=== PATIENT | female | born 1985 | race Two or more races ===

== ENCOUNTER 2017-10-22 20:24 | Emergency (ER) | payer MEDICAID ==
[~2017-10-22] VITALS: Ht 149.9 cm; Wt 58.1 kg
[2017-10-22 20:49] VITALS: BP 133/82
== END 2017-10-22 21:56 | disposition home or self-care (01) ==
LOC: ER 20:32
DX: R05 Cough (principal); R09.81 Nasal congestion
CPT/HCPCS: 71045; 99283; A4606; Z7610

== ENCOUNTER 2017-10-26 21:00 | Emergency (ER) | payer MEDICAID ==
[~2017-10-26] VITALS: Ht 149.9 cm; Wt 58.1 kg
[2017-10-26 21:07] VITALS: BP 116/73
--- NOTE | 2017-10-26 23:02 | NUR ---
PT STATED THAT SHE WAS DX WITH INFLUENZA ON 10/23/17 AND FEELS THE MEDICATION PRESCRIBED IS NOT WORKING. PT IS AWAITING EVAL BY .
--- NOTE | 2017-10-26 23:02 | NUR ---
ASSUMED CARE OF PT.
[2017-10-26] MEDS ORDERED: predniSONE 20 MG TABLET ONE (23:26)
[2017-10-26] MEDS ORDERED: ALBUTEROL FS 2.5 MG/3 ML VIAL.NEB NEB ONE (23:30)
[2017-10-26] MEDS ORDERED: IPRATROPIUM NEB FS 0.5 MG/2.5 ML AMPUL.NEB NEB ONE (23:30)
[2017-10-26] MEDS ORDERED: predniSONE 20 MG TABLET PO ONE (23:30)
--- NOTE | 2017-10-26 23:37 | NUR ---
CALLED RT RE: BREATHING TX.
[2017-10-27] MEDS ORDERED: ALBUTEROL FS 2.5 MG/0.5 ML VIAL.NEB ONE (00:04)
[2017-10-27] MEDS ORDERED: IPRATROPIUM NEB FS 0.5 MG/2.5 ML AMPUL.NEB ONE (00:04)
--- NOTE | 2017-10-27 00:25 | NUR ---
PT APPEARS TO BE MOVING AIR. PT STATED THAT SHE FEELS BETTER. MAGDIEL, ITTING IS TRANSLATING FOR DAVEY SETH WHILE SHE IS SPEAKING TO THE PT RE: PLAN.
== END 2017-10-27 01:03 | disposition home or self-care (01) ==
LOC: ER 21:00
DX: J20.9 Acute bronchitis, unspecified (principal)
CPT/HCPCS: 94640; 99283; A4606; J7512; Z7610

== ENCOUNTER 2019-01-16 21:55 | Emergency (ER) | payer MEDICAID ==
[~2019-01-16] VITALS: Ht 162.6 cm; Wt 62.1 kg
[2019-01-16 22:01] VITALS: BP 117/67
--- NOTE | 2019-01-16 22:08 | NUR ---
BIB SELF. AAOX4. NAD. BREATHING EVEN AND UNLABORED. AMBULATORY. IRANIAN SPEAKING, KARO, EMT AT BEDSIDE TO TRANSLATE. CAME IN W/ C/O R 4TH DIGIT SWELLING, BENT ON DISTAL INTERPHALANGE 2ND TO CLEANING AND HIT HER HAND. MD AT BEDSIDE FOR EVAL.
--- NOTE | 2019-01-16 22:18 | NUR ---
MAXAY AT BEDSIDE. WAIVER OBTAINED FROM PT.
[2019-01-16] MEDS ORDERED: IBUPROFEN 600 MG TABLET PO ONE ×2 (22:26→22:30)
--- NOTE | 2019-01-16 22:27 | NUR ---
EMT AT BEDSIDE AND APPLIED FINGER SPLINT.
--- NOTE | 2019-01-16 22:32 | NUR ---
Patient discharged to home in stable condition. Written and verbal after care instructions given. Patient verbalizes understanding of instruction.
== END 2019-01-16 22:35 | disposition home or self-care (01) ==
LOC: ER 21:57
DX: M20.011 Mallet finger of right finger(s) (principal); W22.8XXA Striking against or struck by other objects, initial encounter; Y93.89 Activity, other specified; Y92.89 Other specified places as the place of occurrence of the external cause; Y99.8 Other external cause status
CPT/HCPCS: 73140-TC

== ENCOUNTER 2019-03-31 20:02 | Emergency (ER) | payer MEDICAID ==
[~2019-03-31] VITALS: Ht 152.4 cm; Wt 62.6 kg
[2019-03-31 20:07] VITALS: BP 116/68
[2019-03-31] MEDS ORDERED: IBUPROFEN 600 MG TABLET PO ONE ×2 (21:00→21:22)
--- NOTE | 2019-03-31 22:21 | NUR ---
called chana for read
== END 2019-03-31 22:46 | disposition home or self-care (01) ==
LOC: ER 20:06
DX: S60.221A Contusion of right hand, initial encounter (principal); S60.211A Contusion of right wrist, initial encounter; W18.30XA Fall on same level, unspecified, initial encounter; Y93.89 Activity, other specified; Y92.89 Other specified places as the place of occurrence of the external cause; Y99.8 Other external cause status
CPT/HCPCS: 73110; 73130-TC

== ENCOUNTER 2023-01-15 10:26 | Emergency (ER) | payer MEDICAID ==
[~2023-01-15] VITALS: Ht 157.5 cm; Wt 61.2 kg
--- NOTE | 2023-01-15 11:06 | NUR ---
UPPER ABDOMINAL PAIN FOR 7 DAYS.
--- NOTE | 2023-01-15 11:40 | NUR ---
DISPOSAL OPERATOR. AT BEDSIDE
[2023-01-15 11:54] LABS: BASOPHILS # (AUTO) 0.1 K/uL (0.0-0.2); BASOPHILS % (AUTO) 1.2 % (0.0-2.0); EOSINOPHILS % (AUTO) 5.4 % (0.0-6.0); HEMATOCRIT 31 % (33-45); HEMOGLOBIN 9.5 g/dL (11.5-14.8); LYMPHOCYTES # (AUTO) 1.8 K/uL (0.8-4.8); LYMPHOCYTES % (AUTO) 20.6 % (20.0-44.0); MEAN CORPUSCULAR HGB CONC 31 g/dl (31.0-36.0); MEAN CORPUSCULAR VOLUME 64 fL (82-100); MONOCYTES # (AUTO) 0.6 K/uL (0.1-1.30); MONOCYTES % (AUTO) 6.9 % (2.0-12.0); NEUTROPHILS # (AUTO) 5.9 K/uL (1.8-8.9); NEUTROPHILS % (AUTO) 65.9 % (43.0-81.0); PLATELET COUNT (AUTO) 412 K/uL (150-450); RED BLOOD CELL COUNT(AUTO) 4.83 MIL/uL (4.0-5.2); WHITE BLOOD COUNT (AUTO) 8.9 K/uL (4.3-11.0)
[2023-01-15 12:02] LABS: BILIRUBIN,URINE NEGATIVE (NEGATIVE); COLOR,URINE YELLOW (YELLOW); LEUKOCYTE ESTERASE ,URINE TRACE (NEGATIVE); NITRITE, URINE NEGATIVE (NEGATIVE); PH,URINE 6.5 (5.0-8.0); PROTEIN,URINE NEGATIVE (NEGATIVE); UGLUCOSE 2+ mg/dL (NEGATIVE); UROBILINOGEN,URINE 0.2 EU/dL (0.2)
[2023-01-15 12:03] LABS: BACTERIA,URINE Rare /HPF (None Seen); RBC,URINE 0-2 /HPF (0-2); SQUAMOUS EPITHELIAL CELL,UR Few /HPF (None Seen)
[2023-01-15] MEDS ORDERED: MAG HYDROX/AL HYDROX/SIMETH 30 ML UDC ONE (12:19)
[2023-01-15] MEDS ORDERED: FAMOTIDINE (20 MG) 20 MG TABLET ONE (12:19)
[2023-01-15] MEDS ORDERED: IBUPROFEN 600 MG TABLET ONE (12:20)
[2023-01-15] MEDS ORDERED: IBUPROFEN 600 MG TABLET PO ONE (12:30)
[2023-01-15] MEDS ORDERED: MAG HYDROX/AL HYDROX/SIMETH 30 ML UDC PO ONE (12:30)
[2023-01-15] MEDS ORDERED: FAMOTIDINE (20 MG) 20 MG TABLET PO ONE (12:30)
[2023-01-15 12:37] LABS: ALBUMIN 3.6 g/dL (3.4-5.0); BILIRUBIN,TOTAL 0.3 mg/dL (0.2-1.0); CREATININE 0.6 mg/dL (0.6-1.3); POTASSIUM 3.9 mmol/L (3.5-5.1); TOTAL PROTEIN, SERUM 7.4 g/dL (6.4-8.2)
[2023-01-15] MEDS ORDERED: DOCU-141 PO (14:00)
[2023-01-15] MEDS ORDERED: FAMO20TA8 PO (14:00)
[2023-01-15] MEDS ORDERED: IBUP-1955 PO (14:00)
--- NOTE | 2023-01-15 14:08 | NUR ---
Patient discharged to home in stable condition. Written and verbal after care instructions given. Patient verbalizes understanding of instruction.
[2023-01-15 14:10] VITALS: BP 115/75
== END 2023-01-15 14:08 | disposition home or self-care (01) ==
LOC: ER 10:50
DX: K29.70 Gastritis, unspecified, without bleeding (principal); K59.00 Constipation, unspecified; D50.9 Iron deficiency anemia, unspecified; R10.32 Left lower quadrant pain; Z79.899 Other long term (current) drug therapy
CPT/HCPCS: 36415; 80053-TC; 81001; 83690-TC; 84703-TC; 85025-TC

== ENCOUNTER 2024-02-21 14:25 | Emergency (ER) | payer MEDICAID, OTHER ==
[~2024-02-21] VITALS: Ht 152.4 cm; Wt 60.8 kg
[~2024-02-21 14:25] MED LIST: DOCU-141 PO; FAMO20TA8 PO; IBUP-1955 PO
[2024-02-21] MEDS ORDERED: KETOROLAC TROMETHAMINE 15 MG/ML VIAL ONE (15:19)
[2024-02-21] MEDS ORDERED: PANTOPRAZOLE 40 MG VIAL ONE (15:20)
[2024-02-21] MEDS ORDERED: FAMOTIDINE/PF INJ 20 MG/2 ML VIAL IV ONE (15:20)
[2024-02-21] MEDS: KETOROLAC TROMETHAMINE 15 MG/ML VIAL IV ONE (15:35)
[2024-02-21] MEDS: PANTOPRAZOLE 40 MG VIAL IV ONE (15:35)
[2024-02-21] MEDS: FAMOTIDINE/PF INJ 20 MG/2 ML VIAL IV ONE (15:35)
[2024-02-21] MEDS: IV NS 0.9% 1,000 ML BAG IV ONE (15:35)
[2024-02-21 15:55] LABS: BASOPHILS # (AUTO) 0.1 K/uL (0.0-0.2); BASOPHILS % (AUTO) 1.1 % (0.0-2.0); EOSINOPHILS # (AUTO) 0.3 K/uL (0.0-0.7); EOSINOPHILS % (AUTO) 3.1 % (0.0-6.0); HEMATOCRIT 30 % (33-45); HEMOGLOBIN 9.3 g/dL (11.5-14.8); LYMPHOCYTES % (AUTO) 22.1 % (20.0-44.0); MEAN CORPUSCULAR HEMOGLOBIN 20 PG (26.0-33.0); MEAN CORPUSCULAR HGB CONC 31 g/dl (31.0-36.0); MEAN CORPUSCULAR VOLUME 64 fL (82-100); MONOCYTES # (AUTO) 0.5 K/uL (0.1-1.30); MONOCYTES % (AUTO) 5.7 % (2.0-12.0); PLATELET COUNT (AUTO) 433 K/uL (150-450); RED BLOOD CELL COUNT(AUTO) 4.68 MIL/uL (4.0-5.2); RED CELL DISTRIBUTION WIDTH 18.8 % (11.5-15.0); WHITE BLOOD COUNT (AUTO) 8.9 K/uL (4.3-11.0)
[2024-02-21 15:56] LABS: CALCIUM, SERUM 8.7 mg/dL (8.5-10.1); CREATININE 0.7 mg/dL (0.6-1.3); POTASSIUM 3.6 mmol/L (3.5-5.1)
[2024-02-21 16:02] LABS: ALBUMIN 3.6 g/dL (3.4-5.0); BILIRUBIN,DIRECT 0.1 mg/dL (0.0-0.2); BILIRUBIN,TOTAL 0.3 mg/dL (0.2-1.0); TOTAL PROTEIN, SERUM 7.6 g/dL (6.4-8.2)
[2024-02-21] MEDS ORDERED: PANT20TA17 PO (16:48)
[2024-02-21] MEDS ORDERED: FAMO20TA80 PO (16:48)
[2024-02-21 17:08] VITALS: BP 124/68; TEMP 98.4; O2SAT 99
== END 2024-02-21 17:09 | disposition home or self-care (01) ==
LOC: ER 14:53
DX: K29.70 Gastritis, unspecified, without bleeding (principal)
CPT/HCPCS: 99285; 96374; 76705; 96361; 96375 ×2; 85025; 80048; 83690; 80076; 36415; J3490; J7030; C9113; J1885

== ENCOUNTER 2024-06-02 14:57 | Emergency (ER) | payer OTHER ==
[~2024-06-02] VITALS: Ht 154.9 cm; Wt 62.6 kg
[~2024-06-02 14:57] MED LIST changes: +FAMO20TA80 PO; +PANT20TA17 PO
[2024-06-02 15:37] LABS: APPEARANCE,URINE CLEAR (CLEAR); BILIRUBIN,URINE NEGATIVE (NEGATIVE); BLOOD, URINE 2+ Ery/uL (NEGATIVE); COLOR,URINE YELLOW (YELLOW); KETONES,URINE NEGATIVE (NEGATIVE); LEUKOCYTE ESTERASE ,URINE NEGATIVE (NEGATIVE); NITRITE, URINE NEGATIVE (NEGATIVE); PH,URINE 7.5 (5.0-8.0); PROTEIN,URINE NEGATIVE (NEGATIVE); UGLUCOSE 2+ mg/dL (NEGATIVE); UROBILINOGEN,URINE 0.2 EU/dL (0.2)
[2024-06-02 15:46] LABS: BASOPHILS % (AUTO) 0.5 % (0.0-2.0); EOSINOPHILS # (AUTO) 0.4 K/uL (0.0-0.7); HEMATOCRIT 41 % (33-45); HEMOGLOBIN 13.7 g/dL (11.5-14.8); LYMPHOCYTES # (AUTO) 2.9 K/uL (0.8-4.8); LYMPHOCYTES % (AUTO) 29.7 % (20.0-44.0); MEAN CORPUSCULAR HEMOGLOBIN 27 PG (26.0-33.0); MEAN CORPUSCULAR HGB CONC 34 g/dl (31.0-36.0); MEAN CORPUSCULAR VOLUME 82 fL (82-100); MONOCYTES # (AUTO) 0.6 K/uL (0.1-1.30); MONOCYTES % (AUTO) 6.4 % (2.0-12.0); NEUTROPHILS # (AUTO) 5.9 K/uL (1.8-8.9); NEUTROPHILS % (AUTO) 59.4 % (43.0-81.0); PLATELET COUNT (AUTO) 307 K/uL (150-450); RED CELL DISTRIBUTION WIDTH 21.7 % (11.5-15.0); WHITE BLOOD COUNT (AUTO) 9.9 K/uL (4.3-11.0)
[2024-06-02 16:10] LABS: PREGNANCY TEST URINE QUAL NEGATIVE (NEGATIVE)
[2024-06-02 16:12] LABS: ALBUMIN 3.9 g/dL (3.4-5.0); BILIRUBIN,DIRECT 0.1 mg/dL (0.0-0.2); BILIRUBIN,TOTAL 0.4 mg/dL (0.2-1.0); CREATININE 0.6 mg/dL (0.6-1.3); POTASSIUM 3.3 mmol/L (3.5-5.1); TOTAL PROTEIN, SERUM 7.9 g/dL (6.4-8.2)
[2024-06-02 16:13] LABS: ADD URINE CULTURE NO; BACTERIA,URINE None seen /HPF (None Seen); RBC,URINE 0-2 /HPF (0-2); SQUAMOUS EPITHELIAL CELL,UR 0-2 /HPF (None Seen); WBC,URINE 0-2 /HPF (0-3)
[2024-06-02] MEDS ORDERED: ONDA4TAB5 PO (16:57)
[2024-06-02] MEDS ORDERED: FAMO-131 PO (16:57)
[2024-06-02] MEDS ORDERED: PANTOPRAZOLE 40 MG VIAL ONE (17:07)
[2024-06-02] MEDS ORDERED: ONDANSETRON HCL/PF 4 MG/2 ML VIAL ONE (17:07)
[2024-06-02] MEDS ORDERED: MAG HYDROX/AL HYDROX/SIMETH 30 ML UDC ONE (17:08)
[2024-06-02] MEDS ORDERED: LIDOCAINE VISCOUS 2% UD 15 ML UDC ONE (17:08)
[2024-06-02] MEDS: ONDANSETRON HCL/PF 4 MG/2 ML VIAL IVP ONE (17:23)
[2024-06-02] MEDS: PANTOPRAZOLE 40 MG VIAL IV ONE (17:23)
[2024-06-02] MEDS: LIDOCAINE VISCOUS 2% UD 15 ML UDC MM ONE (17:24)
[2024-06-02] MEDS: MAG HYDROX/AL HYDROX/SIMETH 30 ML UDC PO ONE (17:24)
[2024-06-02 18:01] VITALS: BP 126/77; TEMP 98.6; O2SAT 100
== END 2024-06-02 18:02 | disposition home or self-care (01) ==
LOC: ER 15:01
DX: K29.70 Gastritis, unspecified, without bleeding (principal); R10.11 Right upper quadrant pain; R11.0 Nausea; R19.7 Diarrhea, unspecified; M25.511 Pain in right shoulder
CPT/HCPCS: 99285; 96374; 76705; 96375; 85025; 80048; 83690; 80076; 84703; 81001; 36415; J2405; J2470

== ENCOUNTER 2024-07-14 09:23 | Emergency (ER) | payer OTHER ==
[~2024-07-14] VITALS: Ht 154.9 cm; Wt 58.1 kg
[~2024-07-14 09:23] MED LIST changes: +FAMO-131 PO; +ONDA4TAB5 PO
[2024-07-14 11:48] VITALS: BP 133/89; TEMP 97.9; O2SAT 100
== END 2024-07-14 11:49 | disposition left against medical advice (07) ==
LOC: ER 09:58
DX: R10.30 Lower abdominal pain, unspecified (principal); Z87.19 Personal history of other diseases of the digestive system; Z79.899 Other long term (current) drug therapy